=== PATIENT | male | born 1980 | race Caucasian/White ===

== ENCOUNTER 2022-04-18 14:04 | Inpatient (IN) | payer MEDICAID ==
[~2022-04-18] VITALS: Ht 167.6 cm; Wt 68.8 kg
[2022-04-18] MEDS ORDERED: OLAN5TAB52 PO (14:19)
[2022-04-18] MEDS ORDERED: SERT-158 PO (14:19)
[2022-04-18 15:19] LABS: BASOPHILS % (AUTO) 0.5 % (0.0-2.0); EOSINOPHILS % (AUTO) 1.8 % (1.0-6.0); HEMATOCRIT 43.3 % (41-53); HEMOGLOBIN 14.4 g/dL (13.5-17.5); LYMPHOCYTES # (AUTO) 1.5 K/uL (1.0-4.8); LYMPHOCYTES % (AUTO) 21.7 % (22.0-44.0); MEAN CORPUSCULAR HEMOGLOBIN 30.5 pg (26.0-34.0); MEAN CORPUSCULAR HGB CONC 33.2 G/dL (31.0-37.0); MEAN CORPUSCULAR VOLUME 92 fL (80-100); MONOCYTES # (AUTO) 0.4 K/uL (0.1-1.0); MONOCYTES % (AUTO) 5.8 % (2.0-9.0); NEUTROPHILS # (AUTO) 4.7 K/uL (1.8-7.7); NEUTROPHILS % (AUTO) 70.2 % (40.0-70.0); PLATELET COUNT (AUTO) 211 K/uL (150-450); RED BLOOD CELL COUNT(AUTO) 4.71 MIL/uL (4.50-5.90); RED CELL DISTRIBUTION WIDTH 13.2 % (11.5-14.5)
[2022-04-18 15:31] LABS: ANION GAP 6 mmol/L (8-16); CALCIUM, TOTAL 8.9 mg/dL (8.8-10.5); CARBON DIOXIDE 28 mmol/L (22-29); CHLORIDE 105 mmol/L (98-107); CREATININE 0.92 mg/dL (0.60-1.30); GLUCOSE,RANDOM 112 mg/dL (70-110); SODIUM SERUM 139 mmol/L (136-145); UREA NITROGEN, BLOOD 10 mg/dL (7-18)
[2022-04-18 15:34] LABS: GLOMERULAR FILTR. RATE CALC > 60 mL/min (>60)
[2022-04-18 15:41] LABS: ALANINE AMINOTRANSFERASE 22 U/L (12-78); ALBUMIN 3.7 g/dL (3.4-5.0); ALKALINE PHOSPHATASE 70 U/L (46-116); ASPARTATE AMINOTRANSFERASE 19 U/L (15-37); BILIRUBIN,TOTAL 0.3 mg/dL (0.1-1.0); TOTAL PROTEIN, SERUM 7.1 g/dL (6.4-8.2)
[2022-04-18 16:00] LABS: AMPHET/METH SCREEN,URINE NEGATIVE (NEGATIVE); BARBITURATE SCREEN, URINE NEGATIVE (NEGATIVE); BENZODIAZEPINES SCREEN,URINE NEGATIVE (NEGATIVE); CANNABINOID SCREEN,URINE NEGATIVE (NEGATIVE); COCAINE SCREEN,URINE NEGATIVE (NEGATIVE); METHADONE SCREEN, URINE NEGATIVE (NEGATIVE); OPIATE SCREEN,URINE NEGATIVE (NEGATIVE); PHENCYCLIDINE SCREEN,URINE NEGATIVE (NEGATIVE)
[2022-04-18] MEDS ORDERED: HALOPERIDOL 5 MG TABLET PO PRN (16:15)
[2022-04-18] MEDS ORDERED: LORazepam 2 MG TABLET PO PRN (16:15)
[2022-04-18 16:37] LABS: APPEARANCE,URINE CLEAR (CLEAR); BILIRUBIN,URINE NEGATIVE (NEGATIVE); GLUCOSE, URINE (UA) NEGATIVE (NEGATIVE); KETONES,URINE NEGATIVE (NEGATIVE); LEUKOCYTE ESTERASE ,URINE NEGATIVE (NEGATIVE); NITRATE,URINE NEGATIVE (NEGATIVE); OCCULT BLOOD,URINE NEGATIVE (NEGATIVE); PROTEIN,URINE NEGATIVE (NEGATIVE); SPECIFIC GRAVITIY, URINE 1.009 (1.003-1.030); UROBILINOGEN,URINE <=1.0 mg/dL (<=1.0)
[2022-04-18 17:15] LABS: COVID AG,FIA SOURCE NASOPHARYNGEAL
[2022-04-18 21:05] VITALS: BP 141/98
[2022-04-19 08:38] VITALS: BP 131/82
[2022-04-19] MEDS ORDERED: MAG HYDROX/AL HYDROX/SIMETH ES 30 ML SUSPENSION UDCUP PO PRN (09:00)
[2022-04-19] MEDS ORDERED: CloNIDine HCL 0.1 MG TABLET PO PRN (09:00)
[2022-04-19] MEDS ORDERED: DOCUSATE SODIUM 100 MG CAPSULE PO PRN (09:00)
[2022-04-19] MEDS ORDERED: NICOTINE 14 MG/24 HOUR PATCH TD PRN (09:00)
[2022-04-19] MEDS ORDERED: LOPERAMIDE HCL 2 MG CAPSULE PO PRN (09:00)
[2022-04-19] MEDS ORDERED: MAGNESIUM HYDROXIDE SUSPENSION 30 ML UDCUP PO PRN (09:00)
[2022-04-19] MEDS ORDERED: IBUPROFEN 400 MG TABLET PO PRN (09:00)
[2022-04-19] MEDS ORDERED: GuaiFENesin/D-METHORPHAN [SUGAR-FREE] 200-20MG/10 ML SYRUP UDCUP PO PRN (09:00)
[2022-04-19] MEDS ORDERED: PETROLATUM,WHITE 28 GM JELLY TP PRN (09:00)
[2022-04-19] MEDS ORDERED: ALBUTEROL SULFATE HFA 90 MCG/PUFF 8 GM INHALER IH PRN (09:00)
[2022-04-19] MEDS ORDERED: ONDANSETRON HCL 4 MG TABLET PO PRN (09:00)
[2022-04-19] MEDS ORDERED: ACETAMINOPHEN 325 MG TABLET PO PRN (09:00)
[2022-04-19] MEDS: SERTRALINE HCL 50 MG TABLET PO SCH (14:04)
[2022-04-19 16:09] VITALS: BP 141/84
[2022-04-19] MEDS: OLANZapine 5 MG TABLET PO SCH (20:42)
[2022-04-20] MEDS: SERTRALINE HCL 50 MG TABLET PO SCH (08:17)
[2022-04-20 08:56] VITALS: BP 112/69
[2022-04-20 16:11] VITALS: BP 104/61
[2022-04-20] MEDS: OLANZapine 5 MG TABLET PO SCH (20:36)
[2022-04-20] MEDS: ZOLPIDEM TARTRATE 10 MG TABLET PO PRN (22:25)
[2022-04-21 08:30] VITALS: BP 120/80
[2022-04-21] MEDS: SERTRALINE HCL 50 MG TABLET PO SCH (09:07)
[2022-04-21 16:13] VITALS: BP 118/77
[2022-04-21 20:48] VITALS: BP 136/80
[2022-04-21] MEDS: OLANZapine 5 MG TABLET PO SCH (20:58)
[2022-04-21] MEDS: ZOLPIDEM TARTRATE 10 MG TABLET PO PRN (22:43)
[2022-04-22] MEDS: SERTRALINE HCL 50 MG TABLET PO SCH (09:23)
[2022-04-22 09:41] VITALS: BP 121/71
[2022-04-22 16:08] VITALS: BP 141/83
[2022-04-22] MEDS: OLANZapine 5 MG TABLET PO SCH (20:47)
[2022-04-22] MEDS: ZOLPIDEM TARTRATE 10 MG TABLET PO PRN (22:19)
[2022-04-23] MEDS: SERTRALINE HCL 50 MG TABLET PO SCH (09:20)
[2022-04-23 09:37] VITALS: BP 117/70
[2022-04-23 17:05] VITALS: BP 129/75
[2022-04-23] MEDS: OLANZapine 5 MG TABLET PO SCH (20:54)
[2022-04-23] MEDS: ZOLPIDEM TARTRATE 10 MG TABLET PO PRN (22:15)
[2022-04-24] MEDS: SERTRALINE HCL 50 MG TABLET PO SCH (09:03)
[2022-04-24 09:17] VITALS: BP 119/70
[2022-04-24 09:19] VITALS: BP 119/70
[2022-04-24 16:26] VITALS: BP 115/70
[2022-04-24 19:52] VITALS: BP 135/74
[2022-04-24] MEDS: OLANZapine 5 MG TABLET PO SCH (19:52)
[2022-04-24] MEDS: ZOLPIDEM TARTRATE 10 MG TABLET PO PRN (21:58)
[2022-04-25 06:57] LABS: COVID AG,FIA SOURCE NASAL SWAB
[2022-04-25] MEDS: SERTRALINE HCL 50 MG TABLET PO SCH (09:00)
[2022-04-25 09:09] VITALS: BP 118/64
[2022-04-25] MEDS ORDERED: OLAN5TAB52 PO ×2 (11:50→11:54)
[2022-04-25] MEDS ORDERED: SERT-439 PO (11:50)
== END 2022-04-25 14:50 | disposition home or self-care (01) | DRG 751 ==
LOC: EMS 14:09 → 3EI 17:00
PROVIDERS: ADMIT Psychiatry & Neurology Psychiatry; ATTEND Psychiatry & Neurology Psychiatry
DX: F33.2 Major depressive disorder, recurrent severe without psychotic features (principal); R45.851 Suicidal ideations; Z20.822 Contact with and (suspected) exposure to COVID-19; F10.10 Alcohol abuse, uncomplicated; F15.21 Other stimulant dependence, in remission; R03.0 Elevated blood-pressure reading, without diagnosis of hypertension; R73.9 Hyperglycemia, unspecified; F43.10 Post-traumatic stress disorder, unspecified; Z59.00 Homelessness unspecified; Z59.1 Inadequate housing; Z79.899 Other long term (current) drug therapy; Z91.51 Personal history of suicidal behavior; Z56.0 Unemployment, unspecified
CPT/HCPCS: 80053; 80307; 81003; 85025; 99285; G0480

== ENCOUNTER 2022-05-18 13:16 | Inpatient (IN) | payer MEDICAID ==
[~2022-05-18] VITALS: Ht 177.8 cm; Wt 74.6 kg
[~2022-05-18 13:16] MED LIST: OLAN5TAB52 PO; SERT-439 PO
[2022-05-18 13:57] LABS: COVID AG,FIA SOURCE NASOPHARYNGEAL
[2022-05-18 14:00] LABS: BASOPHILS % (AUTO) 0.4 % (0.0-2.0); HEMATOCRIT 41.5 % (41-53); LYMPHOCYTES # (AUTO) 1.6 K/uL (1.0-4.8); LYMPHOCYTES % (AUTO) 27.2 % (22.0-44.0); MEAN CORPUSCULAR HEMOGLOBIN 30.6 pg (26.0-34.0); MEAN CORPUSCULAR HGB CONC 33.6 G/dL (31.0-37.0); MEAN CORPUSCULAR VOLUME 91 fL (80-100); MONOCYTES # (AUTO) 0.4 K/uL (0.1-1.0); MONOCYTES % (AUTO) 6.5 % (2.0-9.0); NEUTROPHILS # (AUTO) 3.8 K/uL (1.8-7.7); NEUTROPHILS % (AUTO) 63.9 % (40.0-70.0); PLATELET COUNT (AUTO) 318 K/uL (150-450); RED BLOOD CELL COUNT(AUTO) 4.56 MIL/uL (4.50-5.90)
[2022-05-18 14:11] LABS: ANION GAP 4 mmol/L (8-16); CARBON DIOXIDE 30 mmol/L (22-29); CHLORIDE 105 mmol/L (98-107); CREATININE 0.93 mg/dL (0.60-1.30); GLOMERULAR FILTR. RATE CALC > 60 mL/min (>60); GLUCOSE,RANDOM 108 mg/dL (70-110); POTASSIUM 3.7 mmol/L (3.5-5.1); SODIUM SERUM 139 mmol/L (136-145); UREA NITROGEN, BLOOD 13 mg/dL (7-18)
[2022-05-18 14:13] LABS: APPEARANCE,URINE CLEAR (CLEAR); BILIRUBIN,URINE NEGATIVE (NEGATIVE); GLUCOSE, URINE (UA) NEGATIVE (NEGATIVE); KETONES,URINE NEGATIVE (NEGATIVE); LEUKOCYTE ESTERASE ,URINE NEGATIVE (NEGATIVE); NITRATE,URINE NEGATIVE (NEGATIVE); OCCULT BLOOD,URINE NEGATIVE (NEGATIVE); PROTEIN,URINE NEGATIVE (NEGATIVE); SPECIFIC GRAVITIY, URINE 1.003 (1.003-1.030); UROBILINOGEN,URINE <=1.0 mg/dL (<=1.0)
[2022-05-18] MEDS ORDERED: HALOPERIDOL 5 MG TABLET PO PRN (14:15)
[2022-05-18 14:16] LABS: ALANINE AMINOTRANSFERASE 20 U/L (12-78); ALBUMIN 3.4 g/dL (3.4-5.0); ALKALINE PHOSPHATASE 94 U/L (46-116); ASPARTATE AMINOTRANSFERASE 17 U/L (15-37); BILIRUBIN,TOTAL 0.1 mg/dL (0.1-1.0); TOTAL PROTEIN, SERUM 7.3 g/dL (6.4-8.2)
[2022-05-18 14:18] LABS: AMPHET/METH SCREEN,URINE NEGATIVE (NEGATIVE); BARBITURATE SCREEN, URINE NEGATIVE (NEGATIVE); BENZODIAZEPINES SCREEN,URINE NEGATIVE (NEGATIVE); CANNABINOID SCREEN,URINE NEGATIVE (NEGATIVE); COCAINE SCREEN,URINE NEGATIVE (NEGATIVE); METHADONE SCREEN, URINE NEGATIVE (NEGATIVE); OPIATE SCREEN,URINE NEGATIVE (NEGATIVE); PHENCYCLIDINE SCREEN,URINE NEGATIVE (NEGATIVE)
[2022-05-18] MEDS ORDERED: LORazepam 2 MG TABLET PO ONE (19:00)
[2022-05-18] MEDS ORDERED: MELATONIN 3 MG TABLET PO ONE (19:00)
[2022-05-18] MEDS ORDERED: OLANZapine 5 MG TABLET PO ONE (19:00)
[2022-05-18 23:15] VITALS: BP 120/75
[2022-05-18] MEDS: ZOLPIDEM TARTRATE 10 MG TABLET PO PRN (23:29)
[2022-05-19 08:37] VITALS: BP 118/92
[2022-05-19] MEDS ORDERED: MAGNESIUM HYDROXIDE SUSPENSION 30 ML UDCUP PO PRN (16:00)
[2022-05-19] MEDS ORDERED: LOPERAMIDE HCL 2 MG CAPSULE PO PRN (16:00)
[2022-05-19] MEDS ORDERED: DOCUSATE SODIUM 100 MG CAPSULE PO PRN (16:00)
[2022-05-19] MEDS ORDERED: ALBUTEROL SULFATE HFA 90 MCG/PUFF 8 GM INHALER IH PRN (16:00)
[2022-05-19] MEDS ORDERED: NICOTINE 14 MG/24 HOUR PATCH TD PRN (16:00)
[2022-05-19] MEDS ORDERED: IBUPROFEN 400 MG TABLET PO PRN (16:00)
[2022-05-19] MEDS ORDERED: CloNIDine HCL 0.1 MG TABLET PO PRN (16:00)
[2022-05-19] MEDS ORDERED: ACETAMINOPHEN 325 MG TABLET PO PRN (16:00)
[2022-05-19] MEDS ORDERED: GuaiFENesin/D-METHORPHAN [SUGAR-FREE] 200-20MG/10 ML SYRUP UDCUP PO PRN (16:00)
[2022-05-19] MEDS ORDERED: PETROLATUM,WHITE 28 GM JELLY TP PRN (16:00)
[2022-05-19] MEDS ORDERED: MAG HYDROX/AL HYDROX/SIMETH ES 30 ML SUSPENSION UDCUP PO PRN (16:00)
[2022-05-19] MEDS ORDERED: ONDANSETRON HCL 4 MG TABLET PO PRN (16:00)
[2022-05-19 20:17] VITALS: BP 118/70
[2022-05-19] MEDS: ZOLPIDEM TARTRATE 10 MG TABLET PO PRN (21:20)
[2022-05-20 08:48] VITALS: BP 126/66
[2022-05-20 20:14] VITALS: BP 130/70
[2022-05-20] MEDS: ZOLPIDEM TARTRATE 10 MG TABLET PO PRN (20:20)
[2022-05-21 08:21] VITALS: BP 111/62
[2022-05-21] MEDS: SERTRALINE HCL 50 MG TABLET PO SCH (13:33)
[2022-05-21] MEDS: OLANZapine 5 MG TABLET PO SCH (20:04)
[2022-05-21 20:12] VITALS: BP 124/74
[2022-05-21] MEDS: LORazepam 2 MG TABLET PO PRN (20:42)
[2022-05-22] MEDS: SERTRALINE HCL 50 MG TABLET PO SCH (08:24)
[2022-05-22 09:53] VITALS: BP 109/67
[2022-05-22 20:18] VITALS: BP 110/64
[2022-05-22] MEDS: OLANZapine 5 MG TABLET PO SCH (21:11)
[2022-05-22] MEDS: LORazepam 2 MG TABLET PO PRN (21:50)
[2022-05-22] MEDS: ZOLPIDEM TARTRATE 10 MG TABLET PO PRN (21:50)
[2022-05-23] MEDS: SERTRALINE HCL 50 MG TABLET PO SCH (08:35)
[2022-05-23 08:42] VITALS: BP 108/59
[2022-05-23] MEDS: OLANZapine 5 MG TABLET PO SCH (20:13)
[2022-05-23 21:43] VITALS: BP 109/65
[2022-05-23] MEDS: ZOLPIDEM TARTRATE 10 MG TABLET PO PRN (22:03)
[2022-05-24 08:09] VITALS: BP 110/65
[2022-05-24] MEDS: SERTRALINE HCL 50 MG TABLET PO SCH (08:51)
[2022-05-24] MEDS: OLANZapine 5 MG TABLET PO SCH (20:15)
[2022-05-24 20:24] VITALS: BP 134/81
[2022-05-24] MEDS: LORazepam 2 MG TABLET PO PRN (21:27)
[2022-05-24] MEDS: ZOLPIDEM TARTRATE 10 MG TABLET PO PRN (21:27)
[2022-05-25 08:10] VITALS: BP 115/61
[2022-05-25] MEDS: SERTRALINE HCL 50 MG TABLET PO SCH (09:24)
[2022-05-25 10:05] LABS: GLUCOMETER DEV NAME(LOC) POC.BV
[2022-05-25] MEDS: OLANZapine 5 MG TABLET PO SCH (20:40)
[2022-05-25 22:21] VITALS: BP 140/78
[2022-05-25] MEDS: LORazepam 2 MG TABLET PO PRN (22:28)
[2022-05-25] MEDS: ZOLPIDEM TARTRATE 10 MG TABLET PO PRN (22:28)
[2022-05-26] MEDS ORDERED: SERT-439 PO (08:41)
[2022-05-26] MEDS ORDERED: OLAN5TAB52 PO (08:41)
[2022-05-26 08:46] VITALS: BP 100/60
[2022-05-26] MEDS: SERTRALINE HCL 50 MG TABLET PO SCH (09:13)
[2022-05-26 20:25] VITALS: BP 115/73
[2022-05-26] MEDS: OLANZapine 5 MG TABLET PO SCH (21:02)
[2022-05-26] MEDS: ZOLPIDEM TARTRATE 10 MG TABLET PO PRN (22:22)
[2022-05-26] MEDS: LORazepam 2 MG TABLET PO PRN (22:23)
[2022-05-27 08:23] VITALS: BP 106/72
[2022-05-27] MEDS: SERTRALINE HCL 50 MG TABLET PO SCH (08:34)
[2022-05-27] MEDS: OLANZapine 5 MG TABLET PO SCH (20:06)
[2022-05-27 20:16] VITALS: BP 125/66
[2022-05-27] MEDS: ZOLPIDEM TARTRATE 10 MG TABLET PO PRN (22:04)
[2022-05-28 08:12] VITALS: BP 106/61
[2022-05-28] MEDS: SERTRALINE HCL 50 MG TABLET PO SCH (08:13)
[2022-05-28] MEDS ORDERED: SERTRALINE HCL 50 MG TABLET PO ONE (12:00)
[2022-05-28] MEDS: OLANZapine 5 MG TABLET PO SCH (20:21)
[2022-05-28] MEDS: ZOLPIDEM TARTRATE 10 MG TABLET PO PRN (22:02)
[2022-05-28] MEDS: LORazepam 2 MG TABLET PO PRN (22:02)
[2022-05-28 22:33] VITALS: BP 116/80
[2022-05-29 06:36] LABS: GLUCOMETER DEV NAME(LOC) POC.BV
[2022-05-29 09:19] VITALS: BP 114/70
[2022-05-29] MEDS: SERTRALINE HCL 50 MG TABLET PO SCH (09:32)
[2022-05-29] MEDS: LORazepam 2 MG TABLET PO PRN ×2 (16:50→21:40)
[2022-05-29] MEDS: OLANZapine 5 MG TABLET PO SCH (20:07)
[2022-05-29] MEDS: ZOLPIDEM TARTRATE 10 MG TABLET PO PRN (21:40)
[2022-05-30 08:25] VITALS: BP 111/68
[2022-05-30] MEDS: SERTRALINE HCL 50 MG TABLET PO SCH (08:55)
[2022-05-30] MEDS: OLANZapine 5 MG TABLET PO SCH (20:14)
[2022-05-30 20:35] VITALS: BP 119/81
[2022-05-30] MEDS: LORazepam 2 MG TABLET PO PRN (20:45)
[2022-05-30] MEDS: ZOLPIDEM TARTRATE 10 MG TABLET PO PRN (20:45)
[2022-05-31 08:12] VITALS: BP 116/72
[2022-05-31] MEDS: SERTRALINE HCL 50 MG TABLET PO SCH (08:22)
[2022-05-31] MEDS: OLANZapine 5 MG TABLET PO SCH (20:38)
[2022-05-31 20:40] VITALS: BP 128/78
[2022-05-31] MEDS: LORazepam 2 MG TABLET PO PRN (22:04)
[2022-05-31] MEDS: ZOLPIDEM TARTRATE 10 MG TABLET PO PRN (22:05)
[2022-06-01 08:00] VITALS: BP 119/60
[2022-06-01] MEDS: SERTRALINE HCL 50 MG TABLET PO SCH (10:05)
[2022-06-01] MEDS: OLANZapine 5 MG TABLET PO SCH (20:28)
[2022-06-01 20:50] VITALS: BP 117/81
[2022-06-01] MEDS: LORazepam 2 MG TABLET PO PRN (22:02)
[2022-06-01] MEDS: ZOLPIDEM TARTRATE 10 MG TABLET PO PRN (22:02)
[2022-06-02] MEDS: LORazepam 2 MG TABLET PO PRN (08:23)
[2022-06-02] MEDS: SERTRALINE HCL 50 MG TABLET PO SCH (08:23)
[2022-06-02] MEDS ORDERED: SERT-162 PO (09:30)
== END 2022-06-02 12:12 | disposition home or self-care (01) | DRG 751 ==
LOC: EMS 13:18 → B3A 18:54
PROVIDERS: ADMIT Psychiatry & Neurology Child & Adolescent Psychiatry; ATTEND Psychiatry & Neurology Psychiatry
DX: F33.2 Major depressive disorder, recurrent severe without psychotic features (principal); R45.851 Suicidal ideations; F15.20 Other stimulant dependence, uncomplicated; F10.10 Alcohol abuse, uncomplicated; F43.10 Post-traumatic stress disorder, unspecified; R03.0 Elevated blood-pressure reading, without diagnosis of hypertension; Z20.822 Contact with and (suspected) exposure to COVID-19; Z79.899 Other long term (current) drug therapy; Z91.51 Personal history of suicidal behavior
CPT/HCPCS: 80053; 80307; 81003; 85025; 87081; 99285; G0480

== ENCOUNTER 2022-06-04 07:52 | Emergency (ER) | payer MEDICAID ==
[~2022-06-04] VITALS: Ht 167.6 cm; Wt 72.7 kg
[~2022-06-04 07:52] MED LIST changes: +SERT-162 PO; -SERT-439 PO
[2022-06-04 08:34] LABS: COVID AG,FIA SOURCE NASOPHARYNGEAL
[2022-06-04 08:36] LABS: BASOPHILS % (AUTO) 0.8 % (0.0-2.0); EOSINOPHILS % (AUTO) 3.6 % (1.0-6.0); HEMATOCRIT 45.4 % (41-53); HEMOGLOBIN 15.3 g/dL (13.5-17.5); LYMPHOCYTES # (AUTO) 1.9 K/uL (1.0-4.8); LYMPHOCYTES % (AUTO) 29.5 % (22.0-44.0); MEAN CORPUSCULAR HEMOGLOBIN 30.4 pg (26.0-34.0); MEAN CORPUSCULAR HGB CONC 33.7 G/dL (31.0-37.0); MEAN CORPUSCULAR VOLUME 90 fL (80-100); MONOCYTES # (AUTO) 0.4 K/uL (0.1-1.0); MONOCYTES % (AUTO) 5.9 % (2.0-9.0); NEUTROPHILS # (AUTO) 3.9 K/uL (1.8-7.7); NEUTROPHILS % (AUTO) 60.2 % (40.0-70.0); PLATELET COUNT (AUTO) 295 K/uL (150-450); RED BLOOD CELL COUNT(AUTO) 5.02 MIL/uL (4.50-5.90); RED CELL DISTRIBUTION WIDTH 13.3 % (11.5-14.5)
[2022-06-04 08:45] LABS: ANION GAP 8 mmol/L (8-16); CALCIUM, TOTAL 9.1 mg/dL (8.8-10.5); CARBON DIOXIDE 28 mmol/L (22-29); CHLORIDE 103 mmol/L (98-107); CREATININE 0.97 mg/dL (0.60-1.30); GLOMERULAR FILTR. RATE CALC > 60 mL/min (>60); GLUCOSE,RANDOM 107 mg/dL (70-110); SODIUM SERUM 139 mmol/L (136-145); UREA NITROGEN, BLOOD 15 mg/dL (7-18)
[2022-06-04 08:51] LABS: ALANINE AMINOTRANSFERASE 25 U/L (12-78); ALBUMIN 3.9 g/dL (3.4-5.0); ALKALINE PHOSPHATASE 90 U/L (46-116); ASPARTATE AMINOTRANSFERASE 24 U/L (15-37); BILIRUBIN,TOTAL 0.4 mg/dL (0.1-1.0); TOTAL PROTEIN, SERUM 7.6 g/dL (6.4-8.2)
[2022-06-04 09:05] LABS: AMPHET/METH SCREEN,URINE NEGATIVE (NEGATIVE); BARBITURATE SCREEN, URINE NEGATIVE (NEGATIVE); BENZODIAZEPINES SCREEN,URINE NEGATIVE (NEGATIVE); CANNABINOID SCREEN,URINE NEGATIVE (NEGATIVE); COCAINE SCREEN,URINE NEGATIVE (NEGATIVE); METHADONE SCREEN, URINE NEGATIVE (NEGATIVE); OPIATE SCREEN,URINE NEGATIVE (NEGATIVE); PHENCYCLIDINE SCREEN,URINE NEGATIVE (NEGATIVE)
[2022-06-04 09:22] VITALS: BP 130/87
== END 2022-06-04 09:32 | disposition home or self-care (01) ==
LOC: EMS 07:54
DX: F32.9 Major depressive disorder, single episode, unspecified (principal); F41.9 Anxiety disorder, unspecified; Z20.822 Contact with and (suspected) exposure to COVID-19
CPT/HCPCS: 99284; 87426; 80053; 85025; 36415; 80307 ×2; G0480

== ENCOUNTER 2022-09-17 20:54 | Inpatient (IN) | payer MEDICAID, OTHER ==
[~2022-09-17] VITALS: Ht 167.6 cm; Wt 62.3 kg
[2022-09-17] MEDS ORDERED: OLANZapine 5 MG TABLET PO ONE (23:00)
[2022-09-17] MEDS ORDERED: BACITRACIN 28 GM OINTMENT TP ONE ×2 (23:00)
[2022-09-17] MEDS ORDERED: TERBINAFINE HCL 250 MG TABLET PO ONE (23:00)
[2022-09-17] MEDS ORDERED: ACETAMINOPHEN 500 MG TABLET PO ONE (23:00)
[2022-09-18] MEDS ORDERED: LORazepam 2 MG/ML VIAL IM ONE (00:15)
[2022-09-18] MEDS ORDERED: HALOPERIDOL LACTATE 5 MG/ML VIAL IM ONE (00:15)
[2022-09-18] MEDS ORDERED: DiphenhydrAMINE HCL 50 MG/ML VIAL IM ONE (00:15)
[2022-09-18 00:41] LABS: BASOPHILS % (AUTO) 0.9 % (0.0-2.0); EOSINOPHILS % (AUTO) 2.7 % (1.0-6.0); HEMATOCRIT 42.6 % (41-53); HEMOGLOBIN 14.7 g/dL (13.5-17.5); LYMPHOCYTES # (AUTO) 2.6 K/uL (1.0-4.8); LYMPHOCYTES % (AUTO) 30.5 % (22.0-44.0); MEAN CORPUSCULAR HEMOGLOBIN 31.6 pg (26.0-34.0); MEAN CORPUSCULAR HGB CONC 34.6 G/dL (31.0-37.0); MEAN CORPUSCULAR VOLUME 91 fL (80-100); MONOCYTES # (AUTO) 0.7 K/uL (0.1-1.0); MONOCYTES % (AUTO) 8.2 % (2.0-9.0); NEUTROPHILS # (AUTO) 4.9 K/uL (1.8-7.7); NEUTROPHILS % (AUTO) 57.7 % (40.0-70.0); PLATELET COUNT (AUTO) 371 K/uL (150-450); RED BLOOD CELL COUNT(AUTO) 4.67 MIL/uL (4.50-5.90); RED CELL DISTRIBUTION WIDTH 15.2 % (11.5-14.5)
[2022-09-18 00:50] LABS: ANION GAP 10 mmol/L (8-16); CALCIUM, TOTAL 7.9 mg/dL (8.8-10.5); CARBON DIOXIDE 29 mmol/L (22-29); CHLORIDE 101 mmol/L (98-107); CREATININE 0.96 mg/dL (0.60-1.30); GLOMERULAR FILTR. RATE CALC > 60 mL/min (>60); GLUCOSE,RANDOM 147 mg/dL (70-110); POTASSIUM 3.3 mmol/L (3.5-5.1); SODIUM SERUM 140 mmol/L (136-145)
[2022-09-18 00:53] LABS: AMPHET/METH SCREEN,URINE POSITIVE (NEGATIVE); BARBITURATE SCREEN, URINE NEGATIVE (NEGATIVE); BENZODIAZEPINES SCREEN,URINE NEGATIVE (NEGATIVE); CANNABINOID SCREEN,URINE NEGATIVE (NEGATIVE); COCAINE SCREEN,URINE NEGATIVE (NEGATIVE); METHADONE SCREEN, URINE NEGATIVE (NEGATIVE); OPIATE SCREEN,URINE NEGATIVE (NEGATIVE); PHENCYCLIDINE SCREEN,URINE NEGATIVE (NEGATIVE)
[2022-09-18 00:57] LABS: ALANINE AMINOTRANSFERASE 36 U/L (12-78); ALBUMIN 2.9 g/dL (3.4-5.0); ALKALINE PHOSPHATASE 94 U/L (46-116); ASPARTATE AMINOTRANSFERASE 32 U/L (15-37); BILIRUBIN,TOTAL 0.2 mg/dL (0.1-1.0); TOTAL PROTEIN, SERUM 6.5 g/dL (6.4-8.2)
[2022-09-18] MEDS ORDERED: POTASSIUM CHLORIDE 10% 40 MEQ/30 ML LIQUID UDCUP PO ONE (01:15)
[2022-09-18 02:08] LABS: COVID AG,FIA SOURCE NASOPHARYNGEAL
[2022-09-18] MEDS ORDERED: HALOPERIDOL 5 MG TABLET PO PRN (04:15)
[2022-09-18 04:37] LABS: APPEARANCE,URINE CLEAR (CLEAR); BILIRUBIN,URINE NEGATIVE (NEGATIVE); GLUCOSE, URINE (UA) NEGATIVE (NEGATIVE); KETONES,URINE NEGATIVE (NEGATIVE); LEUKOCYTE ESTERASE ,URINE NEGATIVE (NEGATIVE); NITRATE,URINE NEGATIVE (NEGATIVE); OCCULT BLOOD,URINE NEGATIVE (NEGATIVE); PH,URINE 6.5 (5.0-8.0); PROTEIN,URINE NEGATIVE (NEGATIVE); SPECIFIC GRAVITIY, URINE 1.022 (1.003-1.030); UROBILINOGEN,URINE <=1.0 mg/dL (<=1.0)
[2022-09-18 04:48] VITALS: BP 145/91; PULSE 70; RESP 18; TEMP 97.2; O2SAT 98
[2022-09-18 04:54] VITALS: BP 145/91; PULSE 70; RESP 18; TEMP 97.2
[2022-09-18 20:38] VITALS: BP 141/95; PULSE 69; PULSE 81; RESP 18; TEMP 98.1; O2SAT 92
[2022-09-18] MEDS: OLANZapine 10 MG TABLET PO SCH (20:43)
[2022-09-18] MEDS ORDERED: PETROLATUM,WHITE 28 GM JELLY TP PRN (20:45)
[2022-09-18] MEDS ORDERED: ONDANSETRON HCL 4 MG TABLET PO PRN (20:45)
[2022-09-18] MEDS ORDERED: OMEPRAZOLE 20 MG CAPSULE PO PRN (20:45)
[2022-09-18] MEDS ORDERED: ALBUTEROL SULFATE HFA 90 MCG/PUFF 8 GM INHALER IH PRN (20:45)
[2022-09-18] MEDS ORDERED: LOPERAMIDE HCL 2 MG CAPSULE PO PRN (20:45)
[2022-09-18] MEDS ORDERED: MAG HYDROX/AL HYDROX/SIMETH ES 30 ML SUSPENSION UDCUP PO PRN (20:45)
[2022-09-18] MEDS ORDERED: DOCUSATE SODIUM 100 MG CAPSULE PO PRN (20:45)
[2022-09-18] MEDS ORDERED: BENZOCAINE/MENTHOL LOZENGE PO PRN (20:45)
[2022-09-18] MEDS ORDERED: CloNIDine HCL 0.1 MG TABLET PO PRN (20:45)
[2022-09-18] MEDS ORDERED: BACITRACIN 28 GM OINTMENT TP PRN (20:45)
[2022-09-18] MEDS ORDERED: MAGNESIUM HYDROXIDE SUSPENSION 30 ML UDCUP PO PRN (20:45)
[2022-09-18 23:16] VITALS: BP 150/97; PULSE 71; RESP 18; TEMP 98
[2022-09-18] MEDS: IBUPROFEN 600 MG TABLET PO PRN (23:21)
[2022-09-19] VITALS (7 sets, daily range): BP systolic 132–144; BP diastolic 84–100; PULSE 60–72; RESP 17–18; TEMP 97.4–97.8; O2SAT 96–97
[2022-09-19 08:15] LABS: HEMOGLOBIN A1C 5.6 % (3.8-5.6)
[2022-09-19 08:22] LABS: CHOL/HDL RATIO 3.6 (4.2-7.3); POTASSIUM 4.1 mmol/L (3.5-5.1)
[2022-09-19] MEDS: IBUPROFEN 600 MG TABLET PO PRN ×2 (08:41→16:31)
[2022-09-19] MEDS: OLANZapine 10 MG TABLET PO SCH (20:35)
[2022-09-20] VITALS (13 sets, daily range): BP systolic 120–149; BP diastolic 67–95; PULSE 62–92; RESP 17–20; TEMP 97.1–98.5
[2022-09-20] MEDS: IBUPROFEN 600 MG TABLET PO PRN ×3 (00:08→19:41)
[2022-09-20] MEDS: TERBINAFINE HCL 1% 30 GM CREAM TP SCH ×2 (08:51→16:27)
[2022-09-20] MEDS: TiZANidine HCL 4 MG TABLET PO PRN ×2 (08:51→17:55)
[2022-09-20] MEDS: ACETAMINOPHEN 325 MG TABLET PO PRN ×2 (16:28→23:48)
[2022-09-20] MEDS: OLANZapine 10 MG TABLET PO SCH (21:00)
[2022-09-20] MEDS: SULFAMETHOX/TRIMETH DS 800-160 MG/TABLET PO SCH (22:02)
[2022-09-20] MEDS: ZOLPIDEM TARTRATE 10 MG TABLET PO PRN (23:09)
[2022-09-20] MEDS: LORazepam 2 MG TABLET PO PRN (23:47)
[2022-09-21] VITALS (7 sets, daily range): BP systolic 118–157; BP diastolic 87–101; PULSE 81–91; RESP 16–19; TEMP 97.8–98
[2022-09-21] MEDS: TiZANidine HCL 4 MG TABLET PO PRN ×2 (03:22→17:13)
[2022-09-21] MEDS: IBUPROFEN 600 MG TABLET PO PRN ×2 (04:34→16:22)
[2022-09-21] MEDS: LORazepam 2 MG TABLET PO PRN (04:34)
[2022-09-21] MEDS: TERBINAFINE HCL 1% 30 GM CREAM TP SCH ×2 (09:25→17:14)
[2022-09-21] MEDS: SULFAMETHOX/TRIMETH DS 800-160 MG/TABLET PO SCH ×2 (09:27→17:13)
[2022-09-21] MEDS: OLANZapine 10 MG TABLET PO SCH (20:57)
[2022-09-22 00:05] VITALS: BP 140/90; PULSE 95; RESP 20; TEMP 98.3
[2022-09-22] MEDS: ZOLPIDEM TARTRATE 10 MG TABLET PO PRN (00:08)
[2022-09-22] MEDS: IBUPROFEN 600 MG TABLET PO PRN (00:08)
[2022-09-22 00:12] VITALS: BP 150/96; PULSE 110; RESP 18; TEMP 98.3
[2022-09-22 01:08] VITALS: RESP 19
[2022-09-22] MEDS: SULFAMETHOX/TRIMETH DS 800-160 MG/TABLET PO SCH ×2 (08:31→16:42)
[2022-09-22] MEDS: TERBINAFINE HCL 1% 30 GM CREAM TP SCH ×2 (08:32→17:12)
[2022-09-22 10:06] VITALS: BP 133/98; PULSE 86; RESP 18; TEMP 97
[2022-09-22] MEDS: ACETAMINOPHEN 325 MG TABLET PO PRN (16:08)
[2022-09-22 16:09] VITALS: BP 149/91; PULSE 110; RESP 18; TEMP 98
[2022-09-22 17:09] VITALS: BP 139/86; PULSE 97; RESP 18; TEMP 97
[2022-09-22] MEDS ORDERED: OLAN10TA74 PO (18:04)
== END 2022-09-22 19:00 | disposition home or self-care (01) | DRG 753 ==
LOC: EMS 21:08 → 3EI 09-18 04:00
PROVIDERS: ADMIT Psychiatry & Neurology Psychiatry; ATTEND Psychiatry & Neurology Psychiatry
DX: F31.9 Bipolar disorder, unspecified (principal); F25.1 Schizoaffective disorder, depressive type; B35.1 Tinea unguium; E87.6 Hypokalemia; F15.10 Other stimulant abuse, uncomplicated; F41.9 Anxiety disorder, unspecified; Z20.822 Contact with and (suspected) exposure to COVID-19; K59.00 Constipation, unspecified; G47.00 Insomnia, unspecified; K21.9 Gastro-esophageal reflux disease without esophagitis; I10 Essential (primary) hypertension; M25.50 Pain in unspecified joint; F43.10 Post-traumatic stress disorder, unspecified; Z59.00 Homelessness unspecified; Z79.899 Other long term (current) drug therapy
CPT/HCPCS: 80053; 80061; 80307; 81003; 83036; 84132; 85025; 99285; G0480; J1200; J1630; J2060

== ENCOUNTER 2022-12-01 22:36 | Inpatient (IN) | payer MEDICAID, OTHER ==
[~2022-12-01] VITALS: Ht 167.6 cm; Wt 62.6 kg
[~2022-12-01 22:36] MED LIST changes: +OLAN10TA74 PO; -OLAN5TAB52 PO; -SERT-162 PO
[2022-12-01 23:14] LABS: BASOPHILS % (AUTO) 0.2 % (0.0-2.0); EOSINOPHILS % (AUTO) 0.1 % (1.0-6.0); HEMATOCRIT 42.6 % (41-53); HEMOGLOBIN 13.5 g/dL (13.5-17.5); LYMPHOCYTES # (AUTO) 1.3 K/uL (1.0-4.8); LYMPHOCYTES % (AUTO) 8.9 % (22.0-44.0); MEAN CORPUSCULAR HGB CONC 31.7 G/dL (31.0-37.0); MEAN CORPUSCULAR VOLUME 92 fL (80-100); MONOCYTES # (AUTO) 0.6 K/uL (0.1-1.0); MONOCYTES % (AUTO) 4.5 % (2.0-9.0); NEUTROPHILS # (AUTO) 12.1 K/uL (1.8-7.7); PLATELET COUNT (AUTO) 430 K/uL (150-450); RED BLOOD CELL COUNT(AUTO) 4.65 MIL/uL (4.50-5.90); RED CELL DISTRIBUTION WIDTH 15.5 % (11.5-14.5)
[2022-12-01] MEDS ORDERED: OLANZapine 5 MG TABLET PO ONE (23:15)
[2022-12-01 23:17] LABS: NEUTROPHILS % (AUTO) 86.3 % (40.0-70.0)
[2022-12-01 23:25] LABS: ANION GAP 9 mmol/L (8-16); CARBON DIOXIDE 27 mmol/L (22-29); CHLORIDE 102 mmol/L (98-107); CREATININE 0.73 mg/dL (0.60-1.30); GLOMERULAR FILTR. RATE CALC > 60 mL/min (>60); GLUCOSE,RANDOM 109 mg/dL (70-110); POTASSIUM 4.2 mmol/L (3.5-5.1); SODIUM SERUM 138 mmol/L (136-145); UREA NITROGEN, BLOOD 7 mg/dL (7-18)
[2022-12-01 23:27] LABS: ALCOHOL, BLOOD (SERUM) < 3 mg/dL (0-10)
[2022-12-01 23:31] LABS: ALANINE AMINOTRANSFERASE 23 U/L (12-78); ALBUMIN 3.6 g/dL (3.4-5.0); ALKALINE PHOSPHATASE 91 U/L (46-116); ASPARTATE AMINOTRANSFERASE 20 U/L (15-37); BILIRUBIN,TOTAL 0.2 mg/dL (0.1-1.0); TOTAL PROTEIN, SERUM 7.5 g/dL (6.4-8.2)
[2022-12-01 23:50] LABS: PH,URINE DRUG SCREEN 6.5 (5.0-8.0)
[2022-12-01 23:53] LABS: ALCOHOL, URINE DRUG SCREEN NEGATIVE (NEGATIVE); AMPHET/METH SCREEN,URINE POSITIVE (NEGATIVE); BARBITURATE SCREEN, URINE NEGATIVE (NEGATIVE); BENZODIAZEPINES SCREEN,URINE NEGATIVE (NEGATIVE); CANNABINOID SCREEN,URINE NEGATIVE (NEGATIVE); COCAINE SCREEN,URINE NEGATIVE (NEGATIVE); METHADONE SCREEN, URINE NEGATIVE (NEGATIVE); OPIATE SCREEN,URINE NEGATIVE (NEGATIVE); PHENCYCLIDINE SCREEN,URINE NEGATIVE (NEGATIVE)
[2022-12-02] MEDS ORDERED: ZOLPIDEM TARTRATE 10 MG TABLET PO PRN
[2022-12-02] MEDS ORDERED: HALOPERIDOL 5 MG TABLET PO PRN
[2022-12-02 00:01] LABS: APPEARANCE,URINE CLEAR (CLEAR); BILIRUBIN,URINE NEGATIVE (NEGATIVE); COLOR,URINE COLORLESS (YELLOW); GLUCOSE, URINE (UA) NEGATIVE (NEGATIVE); KETONES,URINE NEGATIVE (NEGATIVE); LEUKOCYTE ESTERASE ,URINE NEGATIVE (NEGATIVE); NITRATE,URINE NEGATIVE (NEGATIVE); OCCULT BLOOD,URINE NEGATIVE (NEGATIVE); PH,URINE 6.5 (5.0-8.0); PROTEIN,URINE NEGATIVE (NEGATIVE); SPECIFIC GRAVITIY, URINE 1.007 (1.003-1.030); UROBILINOGEN,URINE <=1.0 mg/dL (<=1.0)
[2022-12-02 02:03] LABS: COVID AG,FIA SOURCE NASOPHARYNGEAL
[2022-12-02 02:06] LABS: SARS-COV2 (COVID) ANTIGEN,FIA Negative (Negative)
[2022-12-02 09:00] VITALS: BP 140/81; PULSE 100; RESP 18; TEMP 97.6; O2SAT 98
[2022-12-02 09:27] VITALS: BP 140/91; PULSE 100; RESP 18; TEMP 97.8; O2SAT 97
[2022-12-02 10:00] VITALS: BP 136/80; PULSE 92; RESP 17; TEMP 98.1; O2SAT 98
[2022-12-02] MEDS ORDERED: CloNIDine HCL 0.1 MG TABLET PO PRN (10:30)
[2022-12-02] MEDS ORDERED: NICOTINE 14 MG/24 HOUR PATCH TD PRN (10:30)
[2022-12-02] MEDS ORDERED: HydrOXYzine PAMOATE 50 MG CAPSULE PO PRN (11:00)
[2022-12-02] MEDS ORDERED: MAGNESIUM HYDROXIDE SUSPENSION 30 ML UDCUP PO PRN (11:00)
[2022-12-02] MEDS ORDERED: ACETAMINOPHEN 325 MG TABLET PO PRN (11:00)
[2022-12-02] MEDS ORDERED: PALIPERIDONE PALMITATE 234 MG/1.5 ML SYRINGE IM ONE (11:00)
[2022-12-02] MEDS ORDERED: PROMETHAZINE HCL 25 MG TABLET PO PRN (11:00)
[2022-12-02] MEDS ORDERED: MAG HYDROX/AL HYDROX/SIMETH ES 30 ML SUSPENSION UDCUP PO PRN (11:00)
[2022-12-02] MEDS ORDERED: GuaiFENesin/D-METHORPHAN [SUGAR-FREE] 200-20MG/10 ML SYRUP UDCUP PO PRN (11:00)
[2022-12-02] MEDS ORDERED: TUBERCULIN, PURIFIED PROTEIN DERIVATIVE 5 TU/0.1 ML SYRINGE ID ONE (11:00)
[2022-12-02] MEDS ORDERED: LOPERAMIDE HCL 2 MG CAPSULE PO PRN (11:00)
[2022-12-02 16:00] VITALS: BP 137/71; PULSE 71; RESP 18; TEMP 98.2; O2SAT 95
[2022-12-02] MEDS: THIAMINE 100 MG TABLET PO SCH (16:37)
[2022-12-02] MEDS: DOXYCYCLINE HYCLATE 100 MG TABLET PO SCH (16:37)
[2022-12-02] MEDS ORDERED: LORazepam 2 MG TABLET PO ONE (17:00)
[2022-12-02] MEDS ORDERED: LORazepam 2 MG TABLET PO PRN ×2 (17:00)
[2022-12-02 17:21] VITALS: BP 137/71; RESP 18; O2SAT 96
[2022-12-02 20:30] VITALS: BP 123/86; PULSE 83; RESP 17; TEMP 97.8; O2SAT 98
[2022-12-02] MEDS ORDERED: OLANZapine 5 MG RAPDIS TABLET PO SCH (21:00)
[2022-12-02] MEDS: MELATONIN 5 MG TABLET PO SCH (21:05)
[2022-12-03] VITALS (8 sets, daily range): BP systolic 108–124; BP diastolic 63–90; PULSE 77–89; RESP 17–19; TEMP 96.8–98; O2SAT 96–99
[2022-12-03] MEDS ORDERED: LORazepam 2 MG TABLET PO PRN (07:00)
[2022-12-03 08:17] LABS: HEMOGLOBIN A1C 5.7 % (3.8-5.6)
[2022-12-03 08:35] LABS: CHOL/HDL RATIO 3.6 (4.2-7.3); THYROID STIMULATING HORMONE 1.45 uIU/mL (0.36-3.74)
[2022-12-03] MEDS: THIAMINE 100 MG TABLET PO SCH ×2 (08:44→17:34)
[2022-12-03] MEDS: CEPHALEXIN MONOHYDRATE 500 MG CAPSULE PO SCH ×4 (08:44→22:00)
[2022-12-03] MEDS: DOXYCYCLINE HYCLATE 100 MG TABLET PO SCH ×2 (08:44→17:34)
[2022-12-03] MEDS: NALTREXONE HCL 50 MG TABLET PO SCH (08:45)
[2022-12-03] MEDS: MULTIVITAMINS WITH MINERALS, THERAPEUTIC TABLET PO SCH (08:45)
[2022-12-03] MEDS: LORazepam 2 MG TABLET PO SCH ×4 (08:45→22:01)
[2022-12-03] MEDS: FOLIC ACID 1 MG TABLET PO SCH (08:45)
[2022-12-03] MEDS: OMEGA-3/DHA/EPA/FISH OIL 1,000 MG CAPSULE PO SCH (09:00)
[2022-12-03] MEDS ORDERED: DULoxetine HCL 20 MG CAPSULE PO SCH (09:00)
[2022-12-03] MEDS ORDERED: BuPROPion HCL XL 150 MG ER TABLET PO SCH (09:00)
[2022-12-03] MEDS: OLANZapine 10 MG RAPDIS TABLET PO SCH (22:00)
[2022-12-03] MEDS: MELATONIN 5 MG TABLET PO SCH (22:00)
[2022-12-04 08:34] VITALS: BP 128/80; PULSE 76; RESP 18; TEMP 98.3; O2SAT 97
[2022-12-04] MEDS ORDERED: DULoxetine HCL 30 MG CAPSULE PO SCH (09:00)
[2022-12-04] MEDS: THIAMINE 100 MG TABLET PO SCH ×2 (09:16→16:47)
[2022-12-04] MEDS: MULTIVITAMINS WITH MINERALS, THERAPEUTIC TABLET PO SCH (09:16)
[2022-12-04] MEDS: FOLIC ACID 1 MG TABLET PO SCH (09:16)
[2022-12-04] MEDS: LORazepam 2 MG TABLET PO SCH ×2 (09:16→12:31)
[2022-12-04] MEDS: DOXYCYCLINE HYCLATE 100 MG TABLET PO SCH ×2 (09:16→16:41)
[2022-12-04] MEDS: OMEGA-3/DHA/EPA/FISH OIL 1,000 MG CAPSULE PO SCH (09:16)
[2022-12-04] MEDS: CEPHALEXIN MONOHYDRATE 500 MG CAPSULE PO SCH ×4 (09:17→22:03)
[2022-12-04] MEDS: NALTREXONE HCL 50 MG TABLET PO SCH (09:17)
[2022-12-04] MEDS ORDERED: LORazepam 1 MG TABLET PO PRN (19:00)
[2022-12-04 20:00] VITALS: BP 121/82; PULSE 90; RESP 18; TEMP 97.7; O2SAT 98
[2022-12-04 20:48] VITALS: BP 121/82; PULSE 90; RESP 18; TEMP 97.7; O2SAT 98
[2022-12-04] MEDS ORDERED: LORazepam 1 MG TABLET PO SCH (21:00)
[2022-12-04] MEDS: OLANZapine 10 MG RAPDIS TABLET PO SCH (22:03)
[2022-12-04] MEDS: MELATONIN 5 MG TABLET PO SCH (22:04)
[2022-12-04 23:54] VITALS: RESP 18
[2022-12-05] MEDS ORDERED: LORazepam 0.5 MG TABLET PO PRN (07:00)
[2022-12-05] MEDS ORDERED: LORazepam 1 MG TABLET PO PRN (07:00)
[2022-12-05 08:54] VITALS: BP 120/80; PULSE 96; RESP 18; TEMP 98.7; O2SAT 98
[2022-12-05] MEDS ORDERED: LORazepam 1 MG TABLET PO SCH (09:00)
[2022-12-05] MEDS ORDERED: DULoxetine HCL 20 MG CAPSULE PO SCH (09:00)
[2022-12-05] MEDS: NALTREXONE HCL 50 MG TABLET PO SCH (09:24)
[2022-12-05] MEDS: LORazepam 0.5 MG TABLET PO SCH ×4 (09:24→21:41)
[2022-12-05] MEDS: MULTIVITAMINS WITH MINERALS, THERAPEUTIC TABLET PO SCH (09:25)
[2022-12-05] MEDS: FOLIC ACID 1 MG TABLET PO SCH (09:25)
[2022-12-05] MEDS: DOXYCYCLINE HYCLATE 100 MG TABLET PO SCH ×2 (09:25→17:18)
[2022-12-05] MEDS: CEPHALEXIN MONOHYDRATE 500 MG CAPSULE PO SCH ×4 (09:25→21:42)
[2022-12-05] MEDS: THIAMINE 100 MG TABLET PO SCH ×2 (09:25→17:18)
[2022-12-05] MEDS: OMEGA-3/DHA/EPA/FISH OIL 1,000 MG CAPSULE PO SCH (09:26)
[2022-12-05 20:05] VITALS: BP 154/84; PULSE 95; RESP 17; TEMP 98; O2SAT 97
[2022-12-05 21:08] VITALS: BP 154/84; PULSE 95; RESP 17; TEMP 98; O2SAT 97
[2022-12-05] MEDS: OLANZapine 10 MG RAPDIS TABLET PO SCH (21:41)
[2022-12-05] MEDS: MELATONIN 5 MG TABLET PO SCH (21:42)
[2022-12-06 05:25] VITALS: BP 154/84; PULSE 95; RESP 18; TEMP 98; O2SAT 97
[2022-12-06] MEDS ORDERED: LORazepam 0.5 MG TABLET PO PRN (07:00)
[2022-12-06] MEDS ORDERED: LORazepam 1 MG TABLET PO PRN (07:00)
[2022-12-06] MEDS ORDERED: PALIPERIDONE PALMITATE 156 MG/ML SYRINGE IM ONE (09:00)
[2022-12-06 09:16] VITALS: BP 132/87; PULSE 96; RESP 20; TEMP 97.5; O2SAT 98
[2022-12-06] MEDS: DULoxetine HCL 60 MG CAPSULE PO SCH (09:16)
[2022-12-06] MEDS: NALTREXONE HCL 50 MG TABLET PO SCH (09:17)
[2022-12-06] MEDS: FOLIC ACID 1 MG TABLET PO SCH (09:17)
[2022-12-06] MEDS: DOXYCYCLINE HYCLATE 100 MG TABLET PO SCH ×2 (09:17→17:03)
[2022-12-06] MEDS: THIAMINE 100 MG TABLET PO SCH ×2 (09:17→17:03)
[2022-12-06] MEDS: MULTIVITAMINS WITH MINERALS, THERAPEUTIC TABLET PO SCH (09:17)
[2022-12-06] MEDS: OMEGA-3/DHA/EPA/FISH OIL 1,000 MG CAPSULE PO SCH (09:18)
[2022-12-06] MEDS: CEPHALEXIN MONOHYDRATE 500 MG CAPSULE PO SCH ×4 (09:19→20:57)
[2022-12-06 09:37] VITALS: BP 132/87; PULSE 96; RESP 20; TEMP 97.5; O2SAT 98
[2022-12-06 20:00] VITALS: BP 135/81; PULSE 97; RESP 16; TEMP 97.7; O2SAT 97
[2022-12-06] MEDS: MELATONIN 5 MG TABLET PO SCH (20:57)
[2022-12-06] MEDS: OLANZapine 10 MG RAPDIS TABLET PO SCH (20:57)
[2022-12-07 04:51] VITALS: BP 130/82; PULSE 96; RESP 18; TEMP 97.5; O2SAT 98
[2022-12-07 08:54] VITALS: BP 120/72; PULSE 76; RESP 18; TEMP 97.6; O2SAT 100
[2022-12-07] MEDS: DOXYCYCLINE HYCLATE 100 MG TABLET PO SCH ×2 (09:04→16:15)
[2022-12-07] MEDS: MULTIVITAMINS WITH MINERALS, THERAPEUTIC TABLET PO SCH (09:04)
[2022-12-07] MEDS: CEPHALEXIN MONOHYDRATE 500 MG CAPSULE PO SCH ×4 (09:04→20:23)
[2022-12-07] MEDS: THIAMINE 100 MG TABLET PO SCH ×2 (09:04→16:15)
[2022-12-07] MEDS: DULoxetine HCL 60 MG CAPSULE PO SCH (09:04)
[2022-12-07] MEDS: OMEGA-3/DHA/EPA/FISH OIL 1,000 MG CAPSULE PO SCH (09:04)
[2022-12-07] MEDS: NALTREXONE HCL 50 MG TABLET PO SCH (09:04)
[2022-12-07] MEDS: FOLIC ACID 1 MG TABLET PO SCH (09:05)
[2022-12-07] MEDS: BACITRACIN 28 GM OINTMENT TP SCH (09:05)
[2022-12-07 16:52] VITALS: BP 122/80; PULSE 98; RESP 18; TEMP 98.4; O2SAT 97
[2022-12-07] MEDS: OLANZapine 10 MG RAPDIS TABLET PO SCH (20:23)
[2022-12-07] MEDS: MELATONIN 5 MG TABLET PO SCH (21:26)
[2022-12-07 21:38] VITALS: BP 116/79; PULSE 90; RESP 17; TEMP 97.9; O2SAT 98
[2022-12-08 02:44] VITALS: BP 130/83; PULSE 96; RESP 18; TEMP 98; O2SAT 97
[2022-12-08] MEDS: DOXYCYCLINE HYCLATE 100 MG TABLET PO SCH ×2 (08:57→17:00)
[2022-12-08] MEDS: OMEGA-3/DHA/EPA/FISH OIL 1,000 MG CAPSULE PO SCH (08:57)
[2022-12-08] MEDS: THIAMINE 100 MG TABLET PO SCH ×2 (08:57→17:00)
[2022-12-08] MEDS: FOLIC ACID 1 MG TABLET PO SCH (08:57)
[2022-12-08] MEDS: MULTIVITAMINS WITH MINERALS, THERAPEUTIC TABLET PO SCH (08:57)
[2022-12-08] MEDS: NALTREXONE HCL 50 MG TABLET PO SCH (08:57)
[2022-12-08] MEDS: DULoxetine HCL 60 MG CAPSULE PO SCH (08:57)
[2022-12-08] MEDS: BACITRACIN 28 GM OINTMENT TP SCH (08:58)
[2022-12-08 10:56] VITALS: BP 133/80; PULSE 87; RESP 18; TEMP 97.5; O2SAT 99
[2022-12-08] MEDS ORDERED: MELA5TAB40 PO (15:42)
[2022-12-08] MEDS ORDERED: NALT50TA PO (15:42)
[2022-12-08] MEDS ORDERED: OLAN10TA26 PO (15:42)
[2022-12-08] MEDS ORDERED: DULO-113 PO (15:42)
[2022-12-08] MEDS ORDERED: OMEG-135 PO (15:42)
[2022-12-08 20:21] VITALS: BP 138/84; PULSE 101; RESP 18; TEMP 97.9; O2SAT 98
[2022-12-08] MEDS: MELATONIN 5 MG TABLET PO SCH (20:47)
[2022-12-08] MEDS: OLANZapine 10 MG RAPDIS TABLET PO SCH (20:48)
[2022-12-08] MEDS ORDERED: GABAPENTIN 300 MG CAPSULE PO PRN (21:15)
[2022-12-08 21:32] VITALS: BP 132/81; PULSE 84; RESP 18; TEMP 97.8
[2022-12-09 08:57] VITALS: BP 120/77; PULSE 88; RESP 17; TEMP 97.9; O2SAT 98
[2022-12-09] MEDS: DOXYCYCLINE HYCLATE 100 MG TABLET PO SCH (09:20)
[2022-12-09] MEDS: MULTIVITAMINS WITH MINERALS, THERAPEUTIC TABLET PO SCH (09:20)
[2022-12-09] MEDS: THIAMINE 100 MG TABLET PO SCH (09:20)
[2022-12-09] MEDS: DULoxetine HCL 60 MG CAPSULE PO SCH (09:20)
[2022-12-09] MEDS: OMEGA-3/DHA/EPA/FISH OIL 1,000 MG CAPSULE PO SCH (09:20)
[2022-12-09] MEDS: FOLIC ACID 1 MG TABLET PO SCH (09:20)
[2022-12-09] MEDS: NALTREXONE HCL 50 MG TABLET PO SCH (09:20)
[2022-12-09] MEDS: BACITRACIN 28 GM OINTMENT TP SCH (09:25)
== END 2022-12-09 14:52 | disposition home or self-care (01) | DRG 750 ==
LOC: EMS 22:37 → B2S 12-02 01:19
PROVIDERS: ADMIT Psychiatry & Neurology Psychiatry; ATTEND Psychiatry & Neurology Psychiatry
DX: F25.0 Schizoaffective disorder, bipolar type (principal); R45.851 Suicidal ideations; Z91.148 Patient's other noncompliance with medication regimen for other reason; F15.90 Other stimulant use, unspecified, uncomplicated; F43.10 Post-traumatic stress disorder, unspecified; Z20.822 Contact with and (suspected) exposure to COVID-19; F17.200 Nicotine dependence, unspecified, uncomplicated; I10 Essential (primary) hypertension; Z55.9 Problems related to education and literacy, unspecified; Z59.00 Homelessness unspecified; Z63.9 Problem related to primary support group, unspecified; Z65.3 Problems related to other legal circumstances; Z91.199 Patient's noncompliance with other medical treatment and regimen due to unspecified reason
CPT/HCPCS: 80053; 80061; 80307; 81003; 83036; 84439; 84443; 85025; 86592; 99285; G0480; Q9967

== ENCOUNTER 2022-12-02 03:40 | Emergency (ER) | payer MEDICAID, OTHER ==
[~2022-12-02] VITALS: Ht 167.6 cm; Wt 62.7 kg
[2022-12-02] MEDS ORDERED: BACITRACIN 0.9 GM PACKET OINTMENT TP ONE (03:45)
[2022-12-02] MEDS ORDERED: IBUPROFEN 600 MG TABLET PO ONE (03:45)
[2022-12-02] MEDS ORDERED: LORazepam 2 MG TABLET PO ONE (03:45)
[2022-12-02] MEDS ORDERED: DOXYCYCLINE HYCLATE 100 MG TABLET PO ONE (03:45)
[2022-12-02 03:48] VITALS: TEMP 98.1
[2022-12-02] MEDS ORDERED: ACETAMINOPHEN 500 MG TABLET PO ONE (05:00)
[2022-12-02 08:13] VITALS: BP 150/83; PULSE 92; RESP 16
[2022-12-02] MEDS ORDERED: DOXYCYCLINE HYCLATE 100 MG TABLET PO SCH (09:00)
== END 2022-12-02 08:35 | disposition home or self-care (01) ==
LOC: EMS 03:40
DX: L03.114 Cellulitis of left upper limb (principal); F15.90 Other stimulant use, unspecified, uncomplicated; F41.9 Anxiety disorder, unspecified; F20.9 Schizophrenia, unspecified; F32.A Depression, unspecified
CPT/HCPCS: 99285; Z7502; Z7610

== ENCOUNTER 2024-12-11 19:35 | Emergency (ER) | payer MEDICAID, OTHER ==
[~2024-12-11] VITALS: Ht 165.1 cm; Wt 70.5 kg
[~2024-12-11 19:35] MED LIST changes: +DULO60CA73 PO; +MELA5TAB40 PO; +NALT50TA6 PO; +OLAN10TA26 PO; -OLAN10TA74 PO; +OMEG-135 PO
[2024-12-11 19:43] VITALS: TEMP 99
[2024-12-11 20:11] LABS: COVID AG,FIA SOURCE NASAL SWAB
[2024-12-11 20:18] LABS: PLATELET COUNT (AUTO) 284 K/uL (150-450); RED BLOOD CELL COUNT(AUTO) 5.58 MIL/uL (4.50-5.90); RED CELL DISTRIBUTION WIDTH 13.6 % (11.5-14.5); WHITE BLOOD COUNT (AUTO) 15.3 K/uL (4.5-11.0)
[2024-12-11 20:26] LABS: CALCIUM, TOTAL 9.3 mg/dL (8.8-10.5); CREATININE 1.14 mg/dL (0.60-1.30); GLOMERULAR FILTR. RATE CALC > 60 mL/min (>60); GLUCOSE,RANDOM 148 mg/dL (70-110); SODIUM SERUM 136 mmol/L (136-145); UREA NITROGEN, BLOOD 16 mg/dL (7-18)
[2024-12-11 20:31] LABS: SARS-COV2 (COVID) ANTIGEN,FIA Negative (Negative)
[2024-12-11 21:26] LABS: APPEARANCE,URINE CLEAR (CLEAR); GLUCOSE, URINE (UA) NEGATIVE (NEGATIVE); LEUKOCYTE ESTERASE ,URINE NEGATIVE (NEGATIVE); NITRATE,URINE NEGATIVE (NEGATIVE); OCCULT BLOOD,URINE LARGE (NEGATIVE); PH,URINE DRUG SCREEN 6.0 (5.0-8.0); SPECIFIC GRAVITIY, URINE 1.031 (1.003-1.030)
[2024-12-11 21:34] LABS: ALCOHOL, URINE DRUG SCREEN NEGATIVE (NEGATIVE); AMPHET/METH SCREEN,URINE POSITIVE (NEGATIVE); BARBITURATE SCREEN, URINE NEGATIVE (NEGATIVE); CANNABINOID SCREEN,URINE NEGATIVE (NEGATIVE); COCAINE SCREEN,URINE NEGATIVE (NEGATIVE); METHADONE SCREEN, URINE NEGATIVE (NEGATIVE); SULFOSALICYLIC ACID,URINE 3+ (Negative)
[2024-12-11 21:35] LABS: SQUAMOUS EPITHELIAL CELL,UR Rare /LPF (None Seen)
[2024-12-11] MEDS: POTASSIUM CHLORIDE 20 MEQ ER TABLET PO ONE (22:14)
[2024-12-12 05:30] VITALS: BP 158/98; PULSE 99; RESP 18; O2SAT 96
== END 2024-12-12 05:51 | disposition home or self-care (01) ==
LOC: EMS 19:35
DX: F25.1 Schizoaffective disorder, depressive type (principal); R45.851 Suicidal ideations; F10.129 Alcohol abuse with intoxication, unspecified; F15.10 Other stimulant abuse, uncomplicated; E87.6 Hypokalemia; F19.11 Other psychoactive substance abuse, in remission; F41.9 Anxiety disorder, unspecified; F32.A Depression, unspecified; Z65.3 Problems related to other legal circumstances; Z20.822 Contact with and (suspected) exposure to COVID-19; Z79.899 Other long term (current) drug therapy; Y90.2 Blood alcohol level of 40-59 mg/100 ml
CPT/HCPCS: 99285; 87426; 80048; 85025; 36415; 80307; 81001; G0480; 81002

== ENCOUNTER 2024-12-17 20:16 | Inpatient (IN) | payer MEDICAID ==
[~2024-12-17] VITALS: Ht 160 cm; Wt 79.4 kg
[2024-12-17 21:14] LABS: PLATELET COUNT (AUTO) 284 K/uL (150-450); RED BLOOD CELL COUNT(AUTO) 5.00 MIL/uL (4.50-5.90); RED CELL DISTRIBUTION WIDTH 13.7 % (11.5-14.5); WHITE BLOOD COUNT (AUTO) 10.5 K/uL (4.5-11.0)
[2024-12-17 21:22] LABS: CALCIUM, TOTAL 8.4 mg/dL (8.8-10.5); CREATININE 0.84 mg/dL (0.60-1.30); GLOMERULAR FILTR. RATE CALC > 60 mL/min (>60); GLUCOSE,RANDOM 108 mg/dL (70-110); SODIUM SERUM 134 mmol/L (136-145); UREA NITROGEN, BLOOD 10 mg/dL (7-18)
[2024-12-17 21:29] LABS: ASPARTATE AMINOTRANSFERASE 130.0 U/L (15-37); TOTAL PROTEIN, SERUM 7.5 g/dL (6.4-8.2)
[2024-12-17 22:05] LABS: COVID AG,FIA SOURCE NASAL SWAB
[2024-12-17 22:18] LABS: ALCOHOL, BLOOD (SERUM) 56.0 mg/dL (0-10)
[2024-12-17 22:24] LABS: SARS-COV2 (COVID) ANTIGEN,FIA Negative (Negative)
[2024-12-17] MEDS: ZOLPIDEM TARTRATE 10 MG TABLET PO PRN (23:45)
[2024-12-18 02:27] VITALS: O2SAT 98
[2024-12-18 04:29] VITALS: BP 133/93; PULSE 89; RESP 16; TEMP 98.3; O2SAT 98
[2024-12-18] MEDS ORDERED: MAG HYDROX/ALUMINUM HYD/SIMETH ES 30 ML SUSPENSION UDCUP PO PRN (08:00)
[2024-12-18] MEDS ORDERED: MAGNESIUM HYDROXIDE SUSPENSION 30 ML UDCUP PO PRN (08:00)
[2024-12-18] MEDS ORDERED: OMEPRAZOLE 20 MG CAPSULE PO PRN (08:00)
[2024-12-18] MEDS ORDERED: ALBUTEROL SULFATE HFA 90 MCG/PUFF 8 GM INHALER IH PRN (08:00)
[2024-12-18] MEDS ORDERED: BACITRACIN 28 GM OINTMENT TP PRN (08:00)
[2024-12-18] MEDS ORDERED: ONDANSETRON 4 MG TABLET PO PRN (08:00)
[2024-12-18] MEDS ORDERED: BENZOCAINE/MENTHOL [CEPACOL] LOZENGE PO PRN (08:00)
[2024-12-18] MEDS ORDERED: LOPERAMIDE HCL 2 MG CAPSULE PO PRN (08:00)
[2024-12-18] MEDS: DULoxetine HCL 60 MG CAPSULE PO SCH (09:21)
[2024-12-18] MEDS: OMEGA-3/DHA/EPA/FISH OIL 1,000 MG CAPSULE PO SCH (09:22)
[2024-12-18] MEDS: NALTREXONE HCL 50 MG TABLET PO SCH (09:22)
[2024-12-18 11:08] VITALS: BP 115/79; PULSE 83; RESP 18; TEMP 97.7; O2SAT 99
[2024-12-18 16:02] VITALS: BP 122/72; PULSE 80; RESP 18; TEMP 98.2; O2SAT 98
[2024-12-18 20:18] VITALS: BP 120/81; PULSE 75; RESP 18; TEMP 98.1; O2SAT 98
[2024-12-18] MEDS: MELATONIN 5 MG TABLET PO SCH (20:38)
[2024-12-18 22:10] VITALS: BP 125/78; PULSE 78; RESP 18; TEMP 98.3; O2SAT 98
[2024-12-19 08:38] VITALS: BP 115/83; PULSE 70; RESP 16; TEMP 98.1; O2SAT 98
[2024-12-19 08:59] LABS: ASPARTATE AMINOTRANSFERASE 46 U/L (15-37); CALCIUM, TOTAL 8.3 mg/dL (8.8-10.5); CREATININE 0.67 mg/dL (0.60-1.30); GLOMERULAR FILTR. RATE CALC > 60 mL/min (>60); GLUCOSE,RANDOM 90 mg/dL (70-110); SODIUM SERUM 140 mmol/L (136-145); TOTAL PROTEIN, SERUM 6.4 g/dL (6.4-8.2); UREA NITROGEN, BLOOD 8 mg/dL (7-18)
[2024-12-19] MEDS ORDERED: PALIPERIDONE PALMITATE 234 MG/1.5 ML SYRINGE IM ONE (16:00)
[2024-12-19 16:14] VITALS: RESP 18
[2024-12-19] MEDS ORDERED: GuaiFENesin/D-METHORPHAN [SUGAR-FREE] 200-20MG/10 ML SYRUP UDCUP PO PRN (16:15)
[2024-12-19] MEDS ORDERED: LOPERAMIDE HCL 2 MG CAPSULE PO PRN (16:15)
[2024-12-19] MEDS: THIAMINE 100 MG TABLET PO SCH (16:44)
[2024-12-19] MEDS: CYANOCOBALAMIN 1,000 MCG/ML VIAL IM ONE (16:45)
[2024-12-19 17:15] VITALS: BP 129/84; PULSE 75; RESP 18; TEMP 97.3; O2SAT 97
[2024-12-19 20:00] VITALS: BP 131/77; PULSE 85; RESP 18; TEMP 97.6; O2SAT 98
[2024-12-19 20:22] VITALS: BP 131/77; PULSE 85; RESP 18; TEMP 97.6; O2SAT 98
[2024-12-20] VITALS (10 sets, daily range): BP systolic 116–143; BP diastolic 73–98; PULSE 54–101; RESP 16–18; TEMP 97–98.3; O2SAT 97–99
[2024-12-20 07:07] LABS: HEPATITIS B CORE IGM Negative (Negative)
[2024-12-20] MEDS: MULTIVITAMINS WITH MINERALS, THERAPEUTIC TABLET PO SCH (08:20)
[2024-12-20] MEDS: FOLIC ACID 1 MG TABLET PO SCH (08:20)
[2024-12-21 08:20] VITALS: BP 109/81; PULSE 81; RESP 19; TEMP 97.5; O2SAT 95
[2024-12-21 20:33] VITALS: BP 129/85; PULSE 85; RESP 17; TEMP 98.1; O2SAT 99
[2024-12-21 21:37] VITALS: BP 129/85; PULSE 85; RESP 17; TEMP 98.1; O2SAT 99
[2024-12-22 08:00] VITALS: BP 110/87; PULSE 69; RESP 18; TEMP 98.6; O2SAT 96
[2024-12-22 08:42] VITALS: BP 110/87; PULSE 69; RESP 18; TEMP 98.6; O2SAT 96
[2024-12-22] MEDS: TUBERCULIN, PURIFIED PROTEIN DERIVATIVE 5 TU/0.1 ML SYRINGE ID ONE (14:46)
[2024-12-22 20:00] VITALS: BP 100/71; PULSE 73; RESP 18; TEMP 97.8; O2SAT 95
[2024-12-23 08:03] VITALS: BP 118/94; PULSE 70; RESP 16; TEMP 98.1; O2SAT 98
[2024-12-23] MEDS ORDERED: PALIPERIDONE PALMITATE 156 MG/ML SYRINGE IM ONE (09:00)
[2024-12-23 20:37] VITALS: BP 135/81; PULSE 78; RESP 19; TEMP 98.4; O2SAT 96
[2024-12-23 21:30] VITALS: BP 121/85; PULSE 72; RESP 18; TEMP 98; O2SAT 99
[2024-12-24 08:29] VITALS: BP 139/84; PULSE 68; RESP 17; TEMP 97.9; O2SAT 95
[2024-12-24 14:11] VITALS: BP 132/86; PULSE 81; RESP 18; TEMP 98.7; O2SAT 100
[2024-12-24 19:06] LABS: HEPATITIS C AB (EIA) Reactive (Non Reactive); HEPATITIS C RT-PCR,QNT HCV Not Detected IU/mL
[2024-12-24 21:16] VITALS: BP 121/82; PULSE 66; RESP 18; TEMP 98.3; O2SAT 95
[2024-12-24 21:21] VITALS: BP 121/82; PULSE 66; RESP 18; TEMP 98.3; O2SAT 95
[2024-12-25 09:26] VITALS: BP 121/77; PULSE 69; RESP 17; TEMP 97.2; O2SAT 96
[2024-12-25 11:08] VITALS: RESP 18; O2SAT 96
[2024-12-25] MEDS: ACETAMINOPHEN 325 MG TABLET PO PRN (11:08)
[2024-12-25 12:08] VITALS: RESP 17; O2SAT 96
[2024-12-25] MEDS: GABAPENTIN 300 MG CAPSULE PO PRN (12:15)
[2024-12-25 20:19] VITALS: BP 145/98; PULSE 77; RESP 18; TEMP 98.6; O2SAT 95
[2024-12-26] MEDS: PETROLATUM,WHITE 28 GM JELLY TP PRN (04:03)
[2024-12-26 08:32] VITALS: BP 124/77; PULSE 73; RESP 19; TEMP 97.6; O2SAT 96
[2024-12-26] MEDS: MIRTAZAPINE 15 MG TABLET PO SCH ×2 (17:35→20:38)
[2024-12-26 20:23] VITALS: BP 137/86; PULSE 76; RESP 18; TEMP 98.2; O2SAT 98
[2024-12-26 20:32] VITALS: BP 128/95; RESP 18; O2SAT 98
[2024-12-26] MEDS: IBUPROFEN 600 MG TABLET PO PRN (20:37)
[2024-12-26 21:07] VITALS: RESP 18; O2SAT 68
[2024-12-27 09:00] VITALS: BP 118/74; PULSE 70; RESP 18; TEMP 97.4; O2SAT 96
[2024-12-27] MEDS: TOPIRAMATE 25 MG TABLET PO SCH (16:54)
[2024-12-27] MEDS: ACAMPROSATE CALCIUM 333 MG DR TABLET PO SCH (16:54)
[2024-12-27 20:18] VITALS: BP 133/86; PULSE 77; RESP 17; TEMP 98; O2SAT 98
[2024-12-28 08:22] VITALS: BP 124/83; PULSE 75; RESP 18; TEMP 97.1; O2SAT 96
[2024-12-28] MEDS: DOCUSATE SODIUM 100 MG CAPSULE PO PRN (12:38)
[2024-12-28 20:21] VITALS: BP 125/99; PULSE 87; RESP 17; TEMP 98.2; O2SAT 98
[2024-12-29 08:42] VITALS: BP 119/77; PULSE 69; RESP 16; TEMP 97; O2SAT 95
[2024-12-29] MEDS: TOPIRAMATE 25 MG TABLET PO SCH (09:59)
[2024-12-29] MEDS ORDERED: ACAM333T7 PO (15:03)
[2024-12-29] MEDS ORDERED: OMEG100033 PO (15:03)
[2024-12-29] MEDS ORDERED: OLAN10TA74 PO (15:03)
[2024-12-29] MEDS ORDERED: NALT50TA33 PO (15:03)
[2024-12-29] MEDS ORDERED: MIRT-89 PO ×2 (15:03)
[2024-12-29] MEDS ORDERED: TOPI25 PO (15:03)
== END 2024-12-29 17:15 | disposition home or self-care (01) | DRG 761 ==
LOC: EMS 20:16 → B2S 12-18 02:42
PROVIDERS: ADMIT Psychiatry & Neurology Psychiatry; ATTEND Psychiatry & Neurology Psychiatry
PROC: GZHZZZZ Group Psychotherapy (ICD-10-PCS; principal; 2024-12-19)
PROC: GZ56ZZZ Individual Psychotherapy, Supportive (ICD-10-PCS; 2024-12-19)
DX: F25.9 Schizoaffective disorder, unspecified (principal); R45.850 Homicidal ideations; F10.10 Alcohol abuse, uncomplicated; F32.9 Major depressive disorder, single episode, unspecified; Z20.822 Contact with and (suspected) exposure to COVID-19; F15.10 Other stimulant abuse, uncomplicated; F43.10 Post-traumatic stress disorder, unspecified; R45.851 Suicidal ideations; Y90.2 Blood alcohol level of 40-59 mg/100 ml; Z55.9 Problems related to education and literacy, unspecified; Z56.0 Unemployment, unspecified; Z59.00 Homelessness unspecified; Z60.8 Other problems related to social environment; Z63.9 Problem related to primary support group, unspecified; Z65.3 Problems related to other legal circumstances; Z91.148 Patient's other noncompliance with medication regimen for other reason; F41.0 Panic disorder [episodic paroxysmal anxiety]; G47.00 Insomnia, unspecified; K21.9 Gastro-esophageal reflux disease without esophagitis; I10 Essential (primary) hypertension; K59.00 Constipation, unspecified
CPT/HCPCS: 80048; 80053; 80074; 80076; 84132; 84295; 85025; 87522; G0480; J3420

== ENCOUNTER 2025-01-11 10:37 | Inpatient (IN) | payer MEDICAID ==
[~2025-01-11] VITALS: Ht 165.1 cm; Wt 72.7 kg
[~2025-01-11 10:37] MED LIST changes: +ACAM333T7 PO; +MIRT-89 PO; +NALT50TA33 PO; -NALT50TA6 PO; -OLAN10TA26 PO; +OLAN10TA74 PO; -OMEG-135 PO; +OMEG100033 PO; +TOPI25 PO
[2025-01-11 11:15] LABS: COVID AG,FIA SOURCE NASAL SWAB
[2025-01-11 11:22] LABS: CALCIUM, TOTAL 8.8 mg/dL (8.8-10.5); CREATININE 1.20 mg/dL (0.60-1.30); GLOMERULAR FILTR. RATE CALC > 60 mL/min (>60); GLUCOSE,RANDOM 145 mg/dL (70-110); SODIUM SERUM 137 mmol/L (136-145); UREA NITROGEN, BLOOD 33 mg/dL (7-18)
[2025-01-11 11:28] LABS: APPEARANCE,URINE CLEAR (CLEAR); GLUCOSE, URINE (UA) NEGATIVE (NEGATIVE); LEUKOCYTE ESTERASE ,URINE NEGATIVE (NEGATIVE); NITRATE,URINE NEGATIVE (NEGATIVE); OCCULT BLOOD,URINE LARGE (NEGATIVE); PH,URINE DRUG SCREEN 5.5 (5.0-8.0); SPECIFIC GRAVITIY, URINE 1.026 (1.003-1.030)
[2025-01-11 11:28] LABS: PLATELET COUNT (AUTO) 319 K/uL (150-450); RED BLOOD CELL COUNT(AUTO) 5.10 MIL/uL (4.50-5.90); RED CELL DISTRIBUTION WIDTH 13.8 % (11.5-14.5); WHITE BLOOD COUNT (AUTO) 18.1 K/uL (4.5-11.0)
[2025-01-11 11:42] LABS: ALCOHOL, URINE DRUG SCREEN NEGATIVE (NEGATIVE); AMPHET/METH SCREEN,URINE POSITIVE (NEGATIVE); BARBITURATE SCREEN, URINE NEGATIVE (NEGATIVE); CANNABINOID SCREEN,URINE NEGATIVE (NEGATIVE); COCAINE SCREEN,URINE NEGATIVE (NEGATIVE); METHADONE SCREEN, URINE NEGATIVE (NEGATIVE)
[2025-01-11 11:44] LABS: SQUAMOUS EPITHELIAL CELL,UR Rare /LPF (None Seen)
[2025-01-11] MEDS: OLANZapine 5 MG RAPDIS TABLET PO ONE (11:55)
[2025-01-11 12:01] LABS: SARS-COV2 (COVID) ANTIGEN,FIA Negative (Negative)
[2025-01-11] MEDS ORDERED: MAGNESIUM HYDROXIDE SUSPENSION 30 ML UDCUP PO PRN ×2 (12:15→15:30)
[2025-01-11] MEDS ORDERED: MAG HYDROX/ALUMINUM HYD/SIMETH ES 30 ML SUSPENSION UDCUP PO PRN (12:15)
[2025-01-11] MEDS ORDERED: ACETAMINOPHEN 325 MG TABLET PO PRN ×2 (12:15→15:30)
[2025-01-11] MEDS ORDERED: GuaiFENesin/D-METHORPHAN [SUGAR-FREE] 200-20MG/10 ML SYRUP UDCUP PO PRN (12:15)
[2025-01-11] MEDS ORDERED: ZOLPIDEM TARTRATE 10 MG TABLET PO PRN (12:15)
[2025-01-11] MEDS ORDERED: LOPERAMIDE HCL 2 MG CAPSULE PO PRN (12:15)
[2025-01-11] MEDS ORDERED: PROMETHAZINE HCL 25 MG TABLET PO PRN (12:15)
[2025-01-11] MEDS ORDERED: MORPHINE SULFATE 4 MG/ML SYRINGE IVP PRN (15:30)
[2025-01-11] MEDS ORDERED: ONDANSETRON HCL 4 MG/2 ML VIAL IVP PRN (15:30)
[2025-01-11] MEDS ORDERED: ZOLPIDEM TARTRATE 5 MG TABLET PO PRN (15:30)
[2025-01-11] MEDS ORDERED: BISACODYL 10 MG RECTAL RECTAL SUPPOSITORY PR PRN (15:30)
[2025-01-11] MEDS ORDERED: HYDROCODONE/ACETAMINOPHEN 5-325 MG TABLET PO PRN (15:30)
[2025-01-11] MEDS ORDERED: LORazepam 2 MG/ML VIAL IVP PRN (15:30)
[2025-01-11] MEDS: LORazepam 2 MG/ML VIAL IVP ONE ×2 (16:06→18:26)
[2025-01-11] MEDS: HEPARIN SODIUM,PORCINE 5,000 UNITS/ML VIAL SQ SCH (16:09)
[2025-01-11] MEDS: OMEGA-3/DHA/EPA/FISH OIL 1,000 MG CAPSULE PO SCH (16:24)
[2025-01-11] MEDS: TOPIRAMATE 25 MG TABLET PO SCH (16:24)
[2025-01-11] MEDS: SODIUM CHLORIDE 0.9% 1,000 ML IV STA (17:46)
[2025-01-11] MEDS: DOCUSATE SODIUM 100 MG CAPSULE PO SCH (22:13)
[2025-01-11] MEDS: MELATONIN 5 MG TABLET PO SCH (22:13)
[2025-01-11] MEDS: THIAMINE 100 MG TABLET PO SCH (22:13)
[2025-01-11] MEDS: OLANZapine 5 MG RAPDIS TABLET PO PRN (22:14)
[2025-01-11] MEDS: OLANZapine 10 MG RAPDIS TABLET PO SCH (22:15)
[2025-01-11] MEDS: MIRTAZAPINE 15 MG TABLET PO SCH (22:15)
[2025-01-11 22:54] VITALS: BP 113/83; PULSE 104; RESP 19; TEMP 97.7; O2SAT 97
[2025-01-12 03:35] VITALS: BP 118/75; PULSE 84; RESP 18; TEMP 97.5; O2SAT 100
[2025-01-12 05:21] LABS: PLATELET COUNT (AUTO) 258 K/uL (150-450); RED BLOOD CELL COUNT(AUTO) 4.51 MIL/uL (4.50-5.90); RED CELL DISTRIBUTION WIDTH 14.4 % (11.5-14.5); WHITE BLOOD COUNT (AUTO) 10.9 K/uL (4.5-11.0)
[2025-01-12 05:46] LABS: CHOL/HDL RATIO 5.6 (4.2-7.3); LDL CHOL (CALC.) 109.0 mg/dL (0-130)
[2025-01-12 07:38] VITALS: BP 113/82; PULSE 92; RESP 18; TEMP 97.5; O2SAT 99
[2025-01-12 07:52] LABS: CALCIUM, TOTAL 8.1 mg/dL (8.8-10.5); CREATININE 0.67 mg/dL (0.60-1.30); GLOMERULAR FILTR. RATE CALC > 60 mL/min (>60); GLUCOSE,RANDOM 98 mg/dL (70-110); SODIUM SERUM 142 mmol/L (136-145); UREA NITROGEN, BLOOD 17 mg/dL (7-18)
[2025-01-12] MEDS: MULTIVITAMINS WITH MINERALS, THERAPEUTIC TABLET PO SCH (08:58)
[2025-01-12] MEDS: FOLIC ACID 1 MG TABLET PO SCH (09:00)
[2025-01-12] MEDS: NALTREXONE HCL 50 MG TABLET PO SCH (09:00)
[2025-01-12] MEDS: MIRTAZAPINE 15 MG TABLET PO SCH (09:00)
[2025-01-12] MEDS: DULoxetine HCL 20 MG CAPSULE PO SCH (09:00)
[2025-01-12] MEDS: PANTOPRAZOLE SODIUM 40 MG DR TABLET PO SCH (09:00)
[2025-01-12 11:32] VITALS: BP 123/72; PULSE 88; RESP 19; TEMP 97.9; O2SAT 97
[2025-01-12] MEDS: PALIPERIDONE PALMITATE 234 MG/1.5 ML SYRINGE IM ONE (12:06)
[2025-01-16] MEDS ORDERED: PALIPERIDONE PALMITATE 156 MG/ML SYRINGE IM ONE (09:00)
== END 2025-01-12 16:10 | disposition home or self-care (01) | DRG 199 ==
LOC: EMS 10:37 → EDH 15:35 → EDBEDREQSVC 16:07 → EDBEDREQTM 16:07 → EDBEDREQ 16:07 → 5S 22:40
PROVIDERS: ADMIT Internal Medicine; ATTEND Internal Medicine
DX: I16.0 Hypertensive urgency (principal); F25.1 Schizoaffective disorder, depressive type; R45.851 Suicidal ideations; D72.829 Elevated white blood cell count, unspecified; F41.9 Anxiety disorder, unspecified; F43.10 Post-traumatic stress disorder, unspecified; Z20.822 Contact with and (suspected) exposure to COVID-19; Z91.51 Personal history of suicidal behavior; F10.20 Alcohol dependence, uncomplicated; Y90.0 Blood alcohol level of less than 20 mg/100 ml; F15.20 Other stimulant dependence, uncomplicated; Z78.1 Physical restraint status; Z59.00 Homelessness unspecified
CPT/HCPCS: 80048; 80061; 80307; 81001; 83036; 84439; 84443; 85025; 86592; 93005; 99285; G0480; J0360; J1644; J2060